=== PATIENT | male | born 1995 | race Caucasian/White ===

== ENCOUNTER 2018-06-19 20:38 | Emergency (ER) | payer OTHER ==
[2018-06-19] MEDS: HYDROCODONE/APAP (5/325) TAB PO (22:13)
[2018-06-19] MEDS: DIPHTH/TET/ACEL PERTUSS (ADULT) 0.5 ML VIAL IM* (22:14)
== END 2018-06-19 23:33 | disposition home or self-care (01) ==
LOC: FTE 20:38
DX: T22.112A Burn of first degree of left forearm, initial encounter (principal); X10.2XXA Contact with fats and cooking oils, initial encounter; Y92.89 Other specified places as the place of occurrence of the external cause; Z23 Encounter for immunization
CPT/HCPCS: 16020; 90471; 90715; 99283-25

== ENCOUNTER 2018-06-22 19:20 | Emergency (ER) | payer OTHER | END 2018-06-22 20:35 | disposition home or self-care (01) | LOC: FTE 20:35 | DX: Z48.01 Encounter for change or removal of surgical wound dressing (principal); Z76.0 Encounter for issue of repeat prescription; Z87.891 Personal history of nicotine dependence | CPT/HCPCS: 99283; Z7502 ==

== ENCOUNTER 2019-03-21 22:07 | Emergency (ER) | payer OTHER | END 2019-03-22 00:31 | disposition home or self-care (01) | LOC: FTE 22:07 | DX: M79.671 Pain in right foot (principal); M79.672 Pain in left foot | CPT/HCPCS: 99282; Z7502 ==